=== PATIENT | female | born 1945 | race Caucasian/White ===

== ENCOUNTER → 2017-08-29 | Outpatient (CLI) | payer MEDICARE, OTHER ==
[~2017-08-29] MED LIST: ATOR10; ATOR20; LEVSOD75; Levothyroxine200 MCG; PRAVASTATIN SOD10 MG
== END | disposition home or self-care (01) ==
LOC: LAB SHORT 14:07 → PLD 14:07
DX: D36.17 Benign neoplasm of peripheral nerves and autonomic nervous system of trunk, unspecified (principal)
CPT/HCPCS: 88305

== ENCOUNTER → 2019-05-12 | Outpatient (CLI) | payer MEDICARE, OTHER | END | disposition home or self-care (01) | LOC: LAB SHORT 15:04 → PLD 15:04 | DX: D17.1 Benign lipomatous neoplasm of skin and subcutaneous tissue of trunk (principal) | CPT/HCPCS: 88304 ==

== ENCOUNTER 2022-11-24 09:40 | Day surgery (SDC) | payer MEDICARE, OTHER ==
[~2022-11-24] VITALS: Ht 165.1 cm; Wt 62.4 kg
[2022-11-24] MEDS ORDERED: LOSA25 (09:54)
[2022-11-24] MEDS ORDERED: GABA300 (09:54)
[2022-11-24] MEDS ORDERED: Vitamin D1000 UNI1 (09:54)
[2022-11-24 12:19] VITALS: BP 124/74
== END 2022-11-24 12:38 | disposition home or self-care (01) ==
LOC: ORSCSDS 09:40
PROVIDERS: Internal Medicine Gastroenterology
PROC: 0DBL8ZX Excision of Transverse Colon, Via Natural or Artificial Opening Endoscopic, Diagnostic (ICD-10-PCS; principal; 2022-11-24 11:00)
DX: Z12.11 Encounter for screening for malignant neoplasm of colon (principal); Z86.010 Personal history of colon polyps; K63.5 Polyp of colon; Z80.0 Family history of malignant neoplasm of digestive organs; K64.8 Other hemorrhoids; Z79.899 Other long term (current) drug therapy
CPT/HCPCS: 88305; A9270; J2001; J2704; J7120